=== PATIENT | male | born 1985 | race Caucasian/White ===

== ENCOUNTER 2021-11-12 23:24 | Emergency (ER) | payer BC, OTHER, SELFPAY ==
[2021-11-12] MEDS ORDERED: Silver Sulfadiazine 50 GM TUBE ONE (23:44)
[2021-11-13] MEDS ORDERED: HYDROcodone/Acetaminophen 5/325 mg Tablet ONE (00:18)
[2021-11-13] MEDS ORDERED: Silver Sulfadiazine 50 GM TUBE ONE (00:19)
== END 2021-11-13 00:40 | disposition home or self-care (01) ==
LOC: CSHERS 23:24
DX: T24.221A Burn of second degree of right knee, initial encounter (principal); T25.211A Burn of second degree of right ankle, initial encounter; X14.1XXA Other contact with hot air and other hot gases, initial encounter
CPT/HCPCS: 16020

== ENCOUNTER 2021-11-15 08:29 | Outpatient (CLI) | payer BC, SELFPAY | END 2021-11-15 08:30 | disposition home or self-care (01) | LOC: CSHWCC 08:29 | PROVIDERS: ATTEND Preventive Medicine Undersea and Hyperbaric Medicine | DX: T24.232D Burn of second degree of left lower leg, subsequent encounter (principal); T24.231D Burn of second degree of right lower leg, subsequent encounter | CPT/HCPCS: 16020; 99203; G0463 ==

== ENCOUNTER 2021-11-17 12:54 | Outpatient (CLI) | payer BC | END 2021-11-17 12:55 | disposition home or self-care (01) | LOC: CSHWCC 12:54 | PROVIDERS: ATTEND Preventive Medicine Undersea and Hyperbaric Medicine | DX: T24.232D Burn of second degree of left lower leg, subsequent encounter (principal); T24.231D Burn of second degree of right lower leg, subsequent encounter | CPT/HCPCS: 99213; G0463 ==